=== PATIENT | female | born 1990 | race Caucasian/White ===

== ENCOUNTER 2024-11-17 08:29 | Emergency (ER) | payer OTHER | END 2024-11-17 10:14 | disposition home or self-care (01) | LOC: CSHERS 08:29 | DX: S16.1XXA Strain of muscle, fascia and tendon at neck level, initial encounter (principal); S13.4XXA Sprain of ligaments of cervical spine, initial encounter; F17.210 Nicotine dependence, cigarettes, uncomplicated; V49.69XA Unspecified car occupant injured in collision with other motor vehicles in traffic accident, initial encounter | CPT/HCPCS: 71045 ==